=== PATIENT | female | born 1975 | race Caucasian/White ===

== ENCOUNTER 2017-04-17 06:36 | Day surgery (SDC) | payer OTHER ==
[~2017-04-17] VITALS: Ht 157.5 cm; Wt 73.9 kg
[2017-04-17] VITALS (10 sets, daily range): BP systolic 104–130; BP diastolic 61–79
--- NOTE | 2017-04-17 06:33 | Anethesia Preoperative Eval ---
Anesthesia Pre-op PMH/ROS General Date of Evaluation: Apr 17, 2017 Time of Evaluation: 06:30 Anesthesiologist: aria ASA Score: ASA 3 Mallampati Score Class I : Soft palate, uvula, fauces, pillars visible Class II: Soft palate, uvula, fauces visible Class III: Soft palate, base of uvula visible Class IV: Only hard plate visible Mallampati Classification: Class II Surgeon: snehal Diagnosis: abdominal pain, gerd Surgical Procedure: egd/colonoscopy Anesthesia History: none Social History: smoking - former smoker Family History: no anesthesia problems Allergies: Coded Allergies: CODEINE (Verified Allergy, Intermediate, VOMITING, 04/16/17) MEPERIDINE (Verified Allergy, Intermediate, VOMITING, 04/16/17) Medications: see eMAR Past Medical History Cardiovascular: Reports: HTN, other - hypercholesterolemia Gastrointestinal/Genitourinary: Reports: GERD PSxH Narrative: ovarian cystectomy Anesthesia Pre-op Phys. Exam Physician Exam Last Vital Signs Date Time Temp Pulse Resp B/P (MAP) Pulse Ox O2 Delivery O2 Flow Rate FiO2 04/17/17 07:23 98.9 73 19 130/79 98 Room Air Constitutional: NAD Neurologic: CN 2-12 intact Cardiovascular: RRR Respiratory: CTA Gastrointestinal: S/NT/ND Airway Exam Mallampati Score: Class II MO: full Neck: supple2 TMD: 2fb ROM: full Teeth: intact Anesthesia Pre-op A/P Labs Labs Test 04/17/17 06:50 Urine HCG, Qualitative Negative Risk Assessment & Plan Assessment: asa3 Plan: mac Status Change Before Surgery: No Pre-Antibiotics Drug: MATT Padilla Apr 17, 2017 06:33
[~2017-04-17 06:36] MED LIST: LEVSIN-SL0.125 MG SL; LISINOPRIL5 MG ORAL; ORTHO TRI-CYCL1 EAC1 PO; PRILOSEC OTC20 MG ORAL; ZANTAC150 MG ORAL
[2017-04-17] MEDS ORDERED: LR 1000ml 1,000 ML IVLG SCH ×2 (07:00→08:34)
[2017-04-17] MEDS ORDERED: Lidocaine 1% MPF 10mg/ml 5ml ONE (08:00)
[2017-04-17] MEDS ORDERED: Propofol 200mg/20ml IV ONE (08:00)
[2017-04-17] MEDS ORDERED: LR 1000ml ONE (08:00)
--- NOTE | 2017-04-17 08:06 | Short Stay Surgery H&P ---
History of Present Illness History of Present Illness Chief Complaint Abdominal pains,GERDs. AMAN Arenas is a 41 year old female who was admitted on for Abdominal Pain, Gerds Patient History Allergies: Coded Allergies: CODEINE (Verified Allergy, Intermediate, VOMITING, 04/16/17) MEPERIDINE (Verified Allergy, Intermediate, VOMITING, 04/16/17) PAST MEDICAL HISTORY: (1) Ovarian cyst (2) ovarian cyst (3) Hypertension Past Surgeries: Social History: Medication History Scheduled Hyoscyamine Sulfate* (Levsin-Sl*), 0.125 MG SL NEEDED, (Reported) Lisinopril (Lisinopril*), 5 MG ORAL DAILY, (Reported) Norgestimate-Ethinyl Estradiol (Ortho Tri-Cyclen Lo), 1 EACH PO DAILY, (Reported ) Omeprazole Magnesium (Prilosec Otc), 40 MG ORAL DAILY, (Reported) Ranitidine Hcl* (Zantac*), 300 MG ORAL DAILY, (Reported) Review of Systems Cardiovascular: Reports: no symptoms Respiratory: Reports: no symptoms Skeletal: Reports: no symptoms Gastrointestinal: Reports: gastro esophageal reflux disease Genitourinary: Reports: no symptoms Neurologic: Reports: no symptoms Endocrine: Reports: no symptoms Hematologic: Reports: no symptoms Physical Exam Vital Signs Last Vital Signs Date Time Temp Pulse Resp B/P (MAP) Pulse Ox O2 Delivery O2 Flow Rate FiO2 04/17/17 07:23 98.9 73 19 130/79 98 Room Air Labs Laboratory Tests Test 04/17/17 06:50 Urine HCG, Qualitative Negative Skin: normal HENT: normal Heart: normal Lungs: normal Abdomen: abnormal Extremities: normal Genitourinary: normal Plan Plan of Care Uppr and lower GI endoscopies. Preop Interventions None. Summary of Findings See the reports. Final Diagnosis: Attestation Are the patient's medical conditions optimized for surgery? Attestation Response: yes ENOC BOSS Apr 17, 2017 08:06
--- NOTE | 2017-04-17 08:07 | Pre-Procedure Note/Attestation ---
Pre-Procedure Note/Attestation Complete Prior to Procedure Planned Procedure: left Procedure Narrative: Endoscopic examination of the upper and the lower GI tract. Indications for Procedure Pre-Operative Diagnosis: R/O Peptic ulcer/esophagitis/colitis. 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 I attest that I re-evaluated the patient just prior to the surgery and that there has been no change in the patient's H&P, except as documented below: GERA,SAID Apr 17, 2017 08:07
--- NOTE | 2017-04-17 08:44 | Endoscopy Procedure Note ---
Endoscopy Procedure Note Indication for Procedure: Abdomina pains and GERDS. Procedures Performed: EGD - Small Hiatal Hernia oterwise completlely normal upper GI endoscopy, biopsy was done per random from gastric body., colonoscopy - Highly redundant colon,otherwise completely normal total colonoscopy. Specimen: yes Pt Tolerated Procedure Well: Yes Estimated Blood Loss: none Anesthesiologist: Dr. Brown Anesthesia: moderate sedation Implant(s) used?: No 50 yrs or older w/o bx or poly: No 10yrs. F/U not recommended: No If not recommended, why?: Med reason:<3 yrs.: System Reason:<3 yrs.: ENOC BOSS Apr 17, 2017 08:44
[2017-04-17] MEDS ORDERED: Atropine Inj 1mg/10ml Syr IV PRN (08:45)
[2017-04-17] MEDS ORDERED: Midazolam 2mg/2ml Inj IVP PRN (08:45)
[2017-04-17] MEDS ORDERED: DiphenhydrAMINE 50mg/ml Inj IVP PRN (08:45)
--- NOTE | 2017-04-17 08:46 | Discharge Instructions ---
Discharge Instructions Discharge Instructions Follow up with: see the docotor after two weeks in the office. For Congestive Heart Failure Reminder Report to your physician any weight gain of 5 pounds or more in one week. ENOC BOSS Apr 17, 2017 08:46
--- NOTE | 2017-04-17 09:34 | Immediate Post-Op Evaluation ---
Immediate Post-Op Evalulation Immediate Post-Op Evalulation Procedure: egd/colonoscopy Date of Evaluation: Apr 17, 2017 Time of Evaluation: 09:02 IV Fluids: 300ml lr Blood Products: none Estimated Blood Loss: negligible Blood Pressure Systolic: 126 Blood Pressure Diastolic: 63 Pulse Rate: 85 Respiratory Rate: 18 O2 Sat by Pulse Oximetry: 100 Temperature (Fahrenheit): 99.4 Pain Score (1-10): 0 Nausea: No Vomiting: No Complications none Patient Status: awake, reacts, patent Hydration Status: adequate Drug: MATT Padilla Apr 17, 2017 09:34
--- NOTE | 2017-04-17 10:01 | 48 Hour Post Anesthesia Eval ---
Post Anesthesia Evaluation Procedure: egd/colonoscopy Date of Evaluation: Apr 17, 2017 Time of Evaluation: 10:00 Blood Pressure Systolic: 104 0: 64 Pulse Rate: 67 Respiratory Rate: 18 Temperature (Fahrenheit): 97.4 O2 Sat by Pulse Oximetry: 100 Airway: patent Nausea: No Vomiting: No Pain Intensity: 0 Hydration Status: adequate Cardiopulmonary Status: stable Mental Status/LOC: patient returned to baseline Post-Anesthesia Complications: none Follow-up care needed: N/A MATT BONILLA Apr 17, 2017 10:01
--- NOTE | 2017-04-17 20:45 | Procedure Note ---
DATE OF PROCEDURE: 04/17/2017 SURGEON: Sanjuana Reeder M.D. PROCEDURE: Esophagogastroduodenoscopy with biopsy. PREOPERATIVE DIAGNOSIS: Epigastric pain and abdominal pain, rule out peptic ulcer disease. POSTOPERATIVE DIAGNOSIS: Small hiatal hernia, otherwise complete normal upper gastrointestinal endoscopy and biopsy was done per random from gastric body. MEDICATION USED: Per Dr. Brown, anesthesiologist. INSTRUMENT: GIF Olympus upper gastrointestinal video endoscope. DESCRIPTION OF PROCEDURE: The patient after arriving in the endoscopy unit, was told about risks and benefits of the procedure, which she accepted and signed informed consent. She was then put in the left lateral decubitus position. After adequate IV sedation, the scope was gently passed through the cricopharyngeal area, was lodged in the upper esophagus and gradually advanced towards gastroesophageal junction. The entire length of the esophagus looked normal and there was however seen a small hiatal hernia of no great significance without any evidence of Lainez's or ulceration dissection. At this point, the scope was advanced into the stomach. Gastric cavity was distended with insufflation of air and gradually the areas of the fundus and the body and the antrum were examined, which revealed normal gastric mucosa without any evidence of ulcerations or other pathologies, gastritis, etc. No polyps or tumors. At this point, one random biopsy from gastric body was obtained. Subsequently, the scope was passed through normal looking pylorus. First and second portion of the duodenum were also found to be completely normal. Finally, the scope was pulled back into the stomach. A retroflexion maneuver was applied. The area of the gastroesophageal junction was examined, which revealed no other pathologies. At this point, the procedure was terminated. The patient tolerated the procedure well. Sanjuana Reeder M.D. DR: ANGÉLICA JOB#: [id number] CC:
--- NOTE | 2017-04-17 20:45 | Procedure Note ---
DATE OF PROCEDURE: 04/17/2017 SURGEON: Sanjuana Reeder M.D. PROCEDURE: Total colonoscopy. PREOPERATIVE DIAGNOSIS: Abdominal pain. POSTOPERATIVE DIAGNOSIS: Significantly redundant colon, otherwise complete normal study up to the base of the cecum without any evidence of polyps, tumors, inflammatory process, etc. MEDICATION USED: Per Dr. Brown, anesthesiologist. INSTRUMENT: GIF Olympus video colonoscope. DESCRIPTION OF PROCEDURE: The patient after arriving in the endoscopy unit, was told about risks and benefits of the procedure, which she accepted and signed informed consent. She was then put in the left lateral decubitus position. After adequate IV sedation, the scope was gently passed through the anal area, which revealed no abnormalities and retroflexion maneuver, which was applied here also revealed no particular tumors, polyps, hemorrhoids, etc. At this time, the scope was passed through normal looking rectum and reached towards the rectosigmoid area. From there, significant amount of time was spent passing the colonoscope through a very difficult colon as it was highly redundant and with maneuvers finally the scope could reach towards the splenic flexure from there into transverse colon, hepatic flexure, and guided into the right colon all the way to the base of the cecum. All these areas however remained to be completely normal and there was no any evidence of tumors or colitis, ulcers, polyps, etc. The colon cleanup was adequate. At this point after reaching to the base of the cecum within 7 minutes, the scope was gradually pulled out and re-evaluation of the colon did not reveal or add any other pathologies. The patient tolerated the procedure well and left the endoscopy room in a good condition. Sanjuana Reeder M.D. DR: ANGÉLICA JOB#: [id number] CC:
--- NOTE | 2017-04-17 21:30 | Pre-op HX & Phy Repo 2 SIG ---
DATE OF ADMISSION: 04/17/2017 HISTORY OF PRESENT ILLNESS: The patient is a 41-year-old female who is being seen prior to undergoing the procedure of upper and lower GI endoscopy, for which she has been scheduled to receive evaluation of her abdominal pain and gastrointestinal complaint that she has suffered subsequent to a work injury. The applicant is basically complaining of severe epigastric pain, which recurs periodically and radiates toward the chest area, for which she has been seen in a couple of hospitals and emergency room including [facility] in [facility] as well as [facility] in recent months because of feeling significant pressure. She was examined completely in these medical centers and found to have no major pathology except the possibility of costochondritis at [facility] was raised recently as she also has received complete cardiac workup including cardiac CT scan, which has revealed normal finding except the small hiatal hernia was found in the CT coronary angiogram recently. The applicant denies any nausea or vomiting. No change in bowel movements such as diarrhea, constipation, or gastrointestinal bleeding. She however does also complain of experiencing generalized abdominal pain intermittently with severe spastic periods. She also reports that she cannot tolerate milk suggesting the possibility of underlying lactose intolerance. The patient reports that she has been taking some nonsteroidal antiinflammatory agents such as Aleve daily for a few weeks. 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 She is under significant psychological pressure as such. A complete blood test and workup, which has been done in the emergency room at [facility] has been very negative for any major conditions. PAST MEDICAL HISTORY: Hypertension, otherwise completely normal. PAST SURGICAL HISTORY: She has had two surgeries for ovarian cyst. ALLERGIES: To Demerol and codeine. HABITS: The applicant drinks a few times a week, but she does not smoke. MEDICATIONS: control pills and Prilosec at this time. REVIEW OF SYSTEMS: Basically history of present illness. PHYSICAL EXAMINATION: GENERAL: Reveals an alert and well-oriented female, who does not seem to be in any acute distress. She looks well developed and nourished. VITAL SIGNS: All stable. HEENT: Normocephalic. Pupils equal in size and reactive to light and accommodation. No jaundice. NECK: Supple. No JVD, thyromegaly, or adenopathy. CHEST: Clear to auscultation and percussion. No rales or rhonchi. HEART: S1 and S2 normal. Regular rhythm. No gallops or murmur. ABDOMEN: Soft, but there are areas of tenderness particularly over the epigastric area and sides of the abdomen, but there is no organomegaly. No palpable mass noted at this time. Bowel sounds are present. EXTREMITIES: Unremarkable. CENTRAL NERVOUS SYSTEM: Unremarkable. PRELIMINARY PREOPERATIVE IMPRESSION: 1. Epigastric pain of uncertain etiology, rule out gastroesophageal reflux with a history of hiatal hernia, rule out peptic ulcer disease, esophagitis, gastritis, etc. 2. Generalized abdominal pain, mostly consistent with irritable bowel syndrome, aggravated by stress and anxiety, rule out underlying colitis. 3. Hypertension and history of costochondritis. RECOMMENDATIONS: The applicant seems to be stable at this time to undergo the procedure of upper and lower GI endoscopy as she has been scheduled for. She understands the risks and benefits and will sign the consent. Said Tim Reeder DR: Breanne JOB#: [id number] CC:
== END 2017-04-17 10:05 | disposition home or self-care (01) ==
LOC: GAS 06:36
DX: R10.9 Unspecified abdominal pain (principal); K44.9 Diaphragmatic hernia without obstruction or gangrene; K21.9 Gastro-esophageal reflux disease without esophagitis; I10 Essential (primary) hypertension; Z88.6 Allergy status to analgesic agent; Z88.8 Allergy status to other drugs, medicaments and biological substances; Z79.3 Long term (current) use of hormonal contraceptives; Z87.891 Personal history of nicotine dependence; E78.00 Pure hypercholesterolemia, unspecified
CPT/HCPCS: 43239; 45378; 81025; J2704; J7120; 94003; 94150